=== PATIENT | female | born 1970 | race Caucasian/White ===

== ENCOUNTER 2020-11-16 13:54 | Outpatient (REF) | payer MEDICAID, SELFPAY | END 2020-11-16 13:55 | disposition home or self-care (01) | LOC: HO.LAB 13:54 | PROVIDERS: Visit Provider Internal Medicine | DX: Z20.822 Contact with and (suspected) exposure to COVID-19 (principal) | CPT/HCPCS: 36415; C9803; U0003; U0005 ==

== ENCOUNTER 2021-07-24 08:11 | Outpatient (REF) | payer MEDICAID, SELFPAY | END 2021-07-24 08:12 | disposition home or self-care (01) | LOC: HO.LAB 08:11 | PROVIDERS: Visit Provider Internal Medicine | DX: Z20.822 Contact with and (suspected) exposure to COVID-19 (principal) | CPT/HCPCS: C9803; U0003; U0005 ==

== ENCOUNTER 2021-08-04 13:05 | Outpatient (REF) | payer MEDICAID, SELFPAY | END 2021-08-04 13:06 | disposition home or self-care (01) | LOC: HO.LAB 13:05 | PROVIDERS: Visit Provider Internal Medicine | DX: Z20.822 Contact with and (suspected) exposure to COVID-19 (principal) | CPT/HCPCS: C9803; U0003; U0005 ==

== ENCOUNTER 2021-08-21 08:28 | Outpatient (REF) | payer MEDICAID, SELFPAY ==
[2021-08-21 09:55] LABS: COVID-19 Test Negative (Negative)
== END 2021-08-21 08:29 | disposition home or self-care (01) ==
LOC: HO.LAB 08:28
PROVIDERS: Visit Provider Internal Medicine
DX: Z20.822 Contact with and (suspected) exposure to COVID-19 (principal)
CPT/HCPCS: 36415; 87635; C9803

== ENCOUNTER 2021-10-03 14:39 | Outpatient (REF) | payer MEDICAID, SELFPAY ==
--- NOTE | ~2021-10-03 | MM_ITS ---
EXAMINATION: MM SCREENING DIGITAL BREAST TOMOSYNTHESIS, BILATERAL CLINICAL INFORMATION: Screening. Asymptomatic. The lifetime risk of breast cancer based on the Tyrer-Cuzick Model is 7%. COMPARISON: Mammography: 04/07/2019 (baseline) TECHNIQUE: Digital breast tomosynthesis is performed in both the craniocaudal and mediolateral oblique views along with computer-aided detection (CAD). Synthesized 2D images are generated from the tomosynthesis. FINDINGS: The breasts are heterogeneously dense, which may obscure small masses (ACR BI-RADS breast composition Category c). Breast tissue composition borders on average fibroglandular. There is asymmetric density anterior medial left breast approximately 1 cm size on CC view without MLO correlate. This may represent summation artifact or incompletely compressed glandular tissue. Patient will be recalled for additional imaging. The remainder of the breasts show no interval mass or architectural abnormality or abnormal calcifications. The axilla are unremarkable. There is mild bilateral nipple retraction on CC views. MM/MM tomosynthesis screening BI IMPRESSION: 1. Left: Asymmetric density anterior medial breast on CC view, possibly summation artifact or incompletely compressed glandular tissue. 2. Right: No mammographic evidence of malignancy. ASSESSMENT: BI-RADS 0: Incomplete - Need Additional Imaging Evaluation RECOMMENDATION: 1. Additional views of the left breast (spot CC, rolled CC x2). 2. Targeted ultrasound if warranted after review of the additional views. 3. Radiology department staff will contact the patient for additional imaging. This patient's information was entered into a reminder system with a target due date for their next mammogram.
== END 2021-10-03 14:40 | disposition home or self-care (01) ==
LOC: HO.MAMMO 14:39
PROVIDERS: Visit Provider Internal Medicine
DX: Z12.31 Encounter for screening mammogram for malignant neoplasm of breast (principal)
CPT/HCPCS: 77063; 77067

== ENCOUNTER 2021-10-17 14:17 | Outpatient (REF) | payer MEDICAID, SELFPAY ==
--- NOTE | ~2021-10-17 | MM_ITS ---
EXAMINATION: MM DIAGNOSTIC DIGITAL BREAST TOMOSYNTHESIS, LEFT US DIAGNOSTIC ULTRASOUND BREAST, LEFT CLINICAL INFORMATION: Recall from screening for subtle asymmetric density anterior medial breast on CC view. TC score 7%. COMPARISON: Mammography: 10/03/2021, 04/07/2019 (baseline). TECHNIQUE: Digital breast tomosynthesis is performed. 2D images are generated from the tomosynthesis. The following views are obtained: Rolled CC x2, spot CC Ultrasound left breast is targeted to the lower inner quadrant. Grayscale imaging and color Doppler are performed without and with harmonics. FINDINGS: The breasts are heterogeneously dense, which may obscure small masses (ACR BI-RADS breast composition Category c). The additional views show subtle small nodularity periareolar medial left breast in area of recall. There is no architectural abnormality or focal duct ectasia. Ultrasound demonstrates 2 incidental cysts in the 7:00-8:00 position within 3 cm of nipple, the larger measuring 0.9 x 0.6 cm with circumscribed margins and increased through-transmission of sound. No associated color flow. The smaller cyst is 0.6 x 0.5 cm with fine avascular internal septation. There is increased through-transmission of sound. There is no solid mass or architectural abnormality. Results are discussed with the patient at time of visit. MM/MM tomosynthesis added views L IMPRESSION: 2 incidental cysts periareolar lower inner left breast, larger 0.9 cm. ASSESSMENT: BI-RADS 2: Benign RECOMMENDATION: Routine annual mammography screening. This patient's information was entered into a reminder system with a target due date for their next mammogram.
== END 2021-10-17 14:18 | disposition home or self-care (01) ==
LOC: HO.MAMMO 14:17
PROVIDERS: PCP Internal Medicine; Visit Provider Internal Medicine
DX: N64.89 Other specified disorders of breast (principal); N60.02 Solitary cyst of left breast
CPT/HCPCS: 76642; 77061; 77065

== ENCOUNTER → 2021-11-08 08:17 | Outpatient (BNVA) | payer MEDICAID, SELFPAY | PROVIDERS: PCP Internal Medicine; Visit Provider Obstetrics & Gynecology | DX: Z13.89 Encounter for screening for other disorder (principal) ==

== ENCOUNTER → 2021-12-25 11:22 | Outpatient (BNVA) | payer MEDICAID, SELFPAY | PROVIDERS: PCP Internal Medicine | DX: N39.3 Stress incontinence (female) (male) (principal) | CPT/HCPCS: 51798; 99202 ==

== ENCOUNTER 2022-01-08 14:23 | Outpatient (REF) | payer MEDICAID, SELFPAY ==
--- NOTE | ~2022-01-08 | US_ITS ---
EXAMINATION: US PELVIS CLINICAL INFORMATION: Hypertrophy of the uterus COMPARISON: 03/28/2020 TECHNIQUE: Ultrasound of the pelvis is performed using both transabdominal and transvaginal transducers along with Doppler. Transvaginal imaging is performed due to inadequate visualization transabdominally. FINDINGS: Uterus: The uterus is anteverted and measures 12.9 x 8.4 x 8.6 cm. Multiple fibroids are redemonstrated, largest within the right fundus measures up to 8.3 cm, previously 9.6 cm. There are 3 additional fibroids measure around 3 cm image similar to prior. The double wall endometrial thickness is 5 mm. The uterus is smooth in contour and has normal myometrial echogenicity. Adnexa: There is no pelvic ascites or fluid collection. Right ovary not seen. Left ovary measures 3.1 x 1.8 x 1.5 cm, and is normal in appearance. US/US pelvic and transvaginal IMPRESSION: Leiomyomatous uterus as described.
== END 2022-01-08 14:24 | disposition home or self-care (01) ==
LOC: HO.US 14:23
PROVIDERS: Visit Provider Obstetrics & Gynecology
DX: N85.2 Hypertrophy of uterus (principal)
CPT/HCPCS: 76830; 76856

== ENCOUNTER → 2022-01-23 11:44 | Outpatient (BNVA) | payer MEDICAID, SELFPAY | PROVIDERS: PCP Internal Medicine; Visit Provider Obstetrics & Gynecology | DX: Z13.89 Encounter for screening for other disorder (principal) ==

== ENCOUNTER → 2022-09-21 14:59 | Outpatient (BNVA) | payer MEDICAID, SELFPAY | PROVIDERS: PCP Internal Medicine; Visit Provider Nurse Practitioner Family | DX: Z13.89 Encounter for screening for other disorder (principal) ==

== ENCOUNTER → 2022-11-12 11:07 | Outpatient (BNVA) | payer MEDICAID, SELFPAY | PROVIDERS: PCP Internal Medicine; Visit Provider Nurse Practitioner Family | DX: N39.3 Stress incontinence (female) (male) (principal) | CPT/HCPCS: 51798; 99212 ==

== ENCOUNTER → 2022-12-11 14:24 | Outpatient (BNVA) | payer MEDICAID, SELFPAY | PROVIDERS: PCP Internal Medicine; Visit Provider Nurse Practitioner Family | DX: R32 Unspecified urinary incontinence (principal) | CPT/HCPCS: 51798 ==

== ENCOUNTER 2022-12-18 16:22 | Outpatient (REF) | payer MEDICAID, SELFPAY ==
--- NOTE | ~2022-12-18 | US_ITS ---
EXAMINATION: US RETROPERITONEAL LIMITED (RENAL ONLY) CLINICAL INFORMATION: Stress incontinence (female). COMPARISON: None available. TECHNIQUE: Real-time imaging of the kidneys. FINDINGS: RIGHT KIDNEY: 9.1 x 3.6 x 4.4 cm (SAG x AP x TRV). The kidney is normal in size, contour, and echogenicity. Renal cortical thickness is normal. No calculi or focal parenchymal lesions. No hydronephrosis. LEFT KIDNEY: 8.7 x 4.0 x 5.1 cm (SAG x AP x TRV). The kidney is normal in size, contour, and echogenicity. Renal cortical thickness is normal. No calculi or focal parenchymal lesions. No hydronephrosis. US/US retroperitoneal limited IMPRESSION: Normal renal ultrasound.
== END 2022-12-18 16:23 | disposition home or self-care (01) ==
LOC: HO.US 16:22
PROVIDERS: Visit Provider Nurse Practitioner Family
DX: N39.3 Stress incontinence (female) (male) (principal)
CPT/HCPCS: 76775

== ENCOUNTER 2022-12-20 14:23 | Outpatient (REF) | payer MEDICAID, SELFPAY ==
[2022-12-21 09:11] LABS: CT PCR NOT DETECTED (Not Detect.); NG PCR NOT DETECTED (Not Detect.)
[2022-12-21 11:06] LABS: BV Int Neg Control Negative (Negative); BV Int Pos Control Positive (Positive)
[2022-12-27 07:24] LABS: HPV mRNA E6/E7 rflx Not Detected (Not Detected)
== END 2022-12-20 14:24 | disposition home or self-care (01) ==
LOC: HO.LNP 14:23
PROVIDERS: PCP Internal Medicine; Visit Provider Advanced Practice Midwife
DX: Z01.411 Encounter for gynecological examination (general) (routine) with abnormal findings (principal); Z11.51 Encounter for screening for human papillomavirus (HPV); N39.3 Stress incontinence (female) (male); R23.9 Unspecified skin changes; N89.8 Other specified noninflammatory disorders of vagina
CPT/HCPCS: 0353U; 87480; 87510; 87624; 87660; 88142

== ENCOUNTER 2023-01-01 14:40 | Outpatient (REF) | payer MEDICAID, SELFPAY ==
--- NOTE | ~2023-01-01 | US_ITS ---
EXAMINATION: US PELVIS LIMITED (BLADDER) CLINICAL INFORMATION: Stress incontinence. COMPARISON: Ultrasound retroperitoneal limited (renal only) 12/18/2022. TECHNIQUE: Real-time imaging of the bladder. FINDINGS: BLADDER: Well distended and normal. Bilateral ureteral jets are demonstrated. Prevoid bladder volume is 218.8 mL. Postvoid bladder volume is 1.1 mL. Enlarged fibroid uterus. US/US bladder IMPRESSION: Normal bladder. Enlarged fibroid uterus.
== END 2023-01-01 14:41 | disposition home or self-care (01) ==
LOC: HO.US 14:40
PROVIDERS: PCP Internal Medicine; Visit Provider Nurse Practitioner Family
DX: N39.3 Stress incontinence (female) (male) (principal)
CPT/HCPCS: 76857

== ENCOUNTER 2023-01-08 14:00 | Outpatient (RCR) | payer MEDICAID, SELFPAY ==
--- NOTE | 2023-01-01 15:19 | MHC.PT.EP ---
[facility] [place] Office [place] Office [place] Office [address] Lilia Yates [address] [phone] F: [phone] F: [phone] F: [phone] F: [phone] Physical Therapy Plan of Care Date of Evaluation: Date of Surgery: Diagnosis: EDVIN Assessment: 52 y/o female referred to Pelvic floor PT with EDVIN. S/s consistent with EDVIN with coughing, sneezing, and laughing as well as some urgency UI with running water. She urinates every 30-45minutes and needs to change pantyliners 2-3x/day. Held pelvic floor assessment today as pt has full bladder in preparation for ultrasound scheduled. Examination shows decreased L hip AROM, decreased hip/core strength, noted bulging of abdomen with core bracing, poor functional load transfer and mild lateral rib expansion with breathing. Recommend PT 1x/week for 8 weeks to address impairments, implement HEP, and optimize functional mobility. Educated pt on pelvic floor anatomy with model, pelvic floor assessment, and the knack with coughing/ sneezing. Frequency and Duration: The patient will be seen 1x/week for 8 weeks Short Term Goals: 4 weeks 1. Pt to be able to correctly activate her PFM to allow improved support to bowel and bladder. 2. Pt to be able to demonstrate a pre contraction before a cough 3. pt to be able to log roll correctly to reduce pressure on the pelvic floor. Intermediate Goals: 8 weeks 1. Pt to be able to show improved PFM contraction during functional movements such as a bridge or squat to help prevent or limit POP. 2. Pt to reduce # of episodes of EDVIN during the day by 50% to help improve quality of life and reduce pad usage. 3. Pt to be independent with her final HEP for PFM in order to help maintain gains made in therapy. Treatment Plan: Modalities to reduce pain, spasms and effusion. Manual therapy to restore motion and function. Therapeutic exercise to improve strength and flexibility. Neuromuscular re-education for posture and balance. Therapeutic activities to return to functional activities of daily living. Electronically signed by: Please sign and return to therapist. Thank you for your referral.
--- NOTE | 2023-02-05 14:26 | MHC.PT.DC ---
[facility] [place] Office [place] Office [place] Office [address] Lilia Yates [address] [phone] F: [phone] F: [phone] F: [phone] F: [phone] Physical Therapy Discharge Report Diagnosis: EDVIN Date of Surgery: Date of Evaluation: 01/01/23 Date of Discharge: 02/05/23 Treatments to Date: 2 Cancellations to Date: 1 No Shows to Date: 2 Discharge Status: Visit Non-compliance Discharge Summary: Patient d/c secondary to noncompliance with scheduling policy. At time of last visit, pt provided consent for pelvic floor assessment. Findings externally showed noted whitish pink tissues with 4 small vertical fissures about 1 long each (2 on each side between labia major/minora, labia minoria appears partially absorbed, clitoral umaña mobility WNL, increased tissue density over perineum. Good pelvic floor voluntary contraction and relaxation, no knack with coughing and noted anterior descent of tissues to introitus. Internally, no TTP, PERF 3+/7/3//7, and noted anterior descent of tissues to introital opening in hooklying. Educated pt on prolapse management with elevating hips, hula-hooping, double voiding, and pressure management. Also practiced fake clearing of throat for learning knack. We discussed skin care and f/u with doctor re tissue coloration changes at vulva and 4 small fissures - she has a f/u and biopsy for these changes next week per pt. Electronically signed by: Rosanna Duncan PT Please sign and return to therapist. Thank you for your referral.
== END 2023-02-05 14:26 | disposition home or self-care (01) ==
LOC: HO.PT 14:00
PROVIDERS: PCP Internal Medicine; Visit Provider Nurse Practitioner Family
DX: N93.9 Abnormal uterine and vaginal bleeding, unspecified (principal)
CPT/HCPCS: 97112; 97140; 97162

== ENCOUNTER → 2023-02-25 12:43 | Outpatient (BNVA) | payer MEDICAID, SELFPAY | PROVIDERS: PCP Internal Medicine; Visit Provider Obstetrics & Gynecology | DX: N90.4 Leukoplakia of vulva (principal) | CPT/HCPCS: 99212 ==

== ENCOUNTER → 2023-05-28 13:51 | Outpatient (BNVA) | payer MEDICAID, SELFPAY | PROVIDERS: PCP Internal Medicine; Visit Provider Obstetrics & Gynecology ==

== ENCOUNTER 2023-06-04 14:36 | Outpatient (REF) | payer MEDICAID, SELFPAY | END 2023-06-04 14:37 | disposition home or self-care (01) | LOC: HO.LNP 14:36 | PROVIDERS: PCP Internal Medicine; Visit Provider Obstetrics & Gynecology | DX: N90.4 Leukoplakia of vulva (principal) | CPT/HCPCS: 56605; 88305; 88312 ==

== ENCOUNTER 2023-06-04 14:36 | Outpatient (AMB) | payer MEDICAID, SELFPAY ==
--- NOTE | 2023-06-04 14:48 | MHC.OFFVIS ---
Intake Vital Signs 06/04/23 14:49 Height 4 ft 11 in Weight 127 lb 13.89 oz BMI 25.8 BP 118/74 Intake Visit Reasons: vulva BX Maintenance Helper Required: No Information Interpreted: non-clinical & clinical Mangle Tender Cloth: Mangle Tender Cloth Present (Kirsten Patrick CHERRY) Accompanied by: Self / Same As Patient Allergies No Known Allergies Allergy (Verified 06/04/23 14:50) Post menopausal: Yes PFSH Medical History Anal lesion Asthma Rectal bleeding Stress incontinence (female) (male) Surgical History Hx of tubal ligation Family History Maternal Aunt Breast CA Sister Cervical cancer Social History Household Members: None Patient Tobacco Use Status: Never used Tobacco Female Reproductive History Menstrual Age of Menarche: 10 Physical Exam Vital Signs: Last Vital Signs BP 118/74 06/04/23 14:49 BMI result Body Mass Index 25.8 Office 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 Since bilateral leukoplakia as look similar, decision was to proceed with left vulvar leukoplakia only. 3 cc of lidocaine was used for anesthesia at the Left vulvar leukoplakia/ulcer area ; using punch biopsy and pickup the Left vulvar leukoplakia/ulcer was biopsied, Vicryl was used to approximate the edges. Pressure was used for hemostasis. The patient tolerated the procedure well. Discharge Instructions: The patient was instructed to schedule an appointment in 2 weeks for follow-up and to call if temp>100.4, area of the biopsy redness or pain, nausea/vomiting. This note was generated with a voice recognition program. Some errors may have been overlooked during the review of this note. Sometimes these errors may affect the content or meaning of a given sentence. 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
[2023-06-04 14:49] VITALS: BP 118/74; BMI 25.8
== END 2023-06-04 15:40 | disposition home or self-care (01) ==
PROVIDERS: PCP Internal Medicine; Visit Provider Obstetrics & Gynecology
DX: N90.4 Leukoplakia of vulva (principal)
CPT/HCPCS: 56605

== ENCOUNTER 2023-07-23 13:43 | Outpatient (AMB) | payer MEDICAID, SELFPAY ==
[2023-07-23 13:44] VITALS: BP 110/70; BMI 25.6
--- NOTE | 2023-07-23 13:44 | MHC.OFFVIS ---
Intake Vital Signs 07/23/23 13:44 Height 4 ft 11 in Weight 127 lb BMI 25.6 BP 110/70 Intake Visit Reasons: Biopsy Results Allergies No Known Allergies Allergy (Verified 07/23/23 13:45) HPI HPI Comments History of Present Illness Details Presenting for follow-up post vulvar biopsy, doing well with no complaints. The pathology showed the following: Vulva, left, lesion, biopsy: Benign skin with acanthosis, hyperkeratosis, hypergranulosis, minimal dermal lymphocytes, and few scattered melanophages (see comment). Comment: These minimal changes suggest chronic irritation and may be postinflammatory (? resolving allergic/irritant contact dermatitis, id reaction etc.) and clinical correlation is necessary [facility] Medical History Stress incontinence (female) (male) Anal lesion Rectal bleeding Asthma Surgical History Hx of tubal ligation Family History Maternal Aunt Breast CA Sister Cervical cancer Social History Household Members: None Patient Tobacco Use Status: Never used Tobacco Female Reproductive History Menstrual Age of Menarche: 10 Review of Systems Const All systems reviewed & are unremarkable except as noted in HPI and below Reports as per HPI and Reports no additional complaints GI Reports no additional complaints Reports no additional complaints Physical Exam Vital Signs: BMI result Body Mass Index 25.6 Assessment & Plan Assessment & Plan (1) 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 Instructions given the patient to call in case symptoms persist, for identification of perineal nonhealing ulcers or hard areas. All questions answered, the patient verbalized understanding Coding Level of Care Code Est Pt Level 3 (20287) Diagnoses Vulvar leukoplakia N90.4
== END 2023-07-23 15:17 | disposition home or self-care (01) ==
LOC: HO.HWS 13:43
PROVIDERS: PCP Internal Medicine; Visit Provider Obstetrics & Gynecology
DX: N90.4 Leukoplakia of vulva (principal)
CPT/HCPCS: 99213

== ENCOUNTER → 2023-07-23 13:43 | Outpatient (BNVA) | payer MEDICAID, SELFPAY | PROVIDERS: PCP Internal Medicine; Visit Provider Obstetrics & Gynecology | DX: N90.4 Leukoplakia of vulva (principal) | CPT/HCPCS: 99212 ==

== ENCOUNTER 2024-09-15 08:32 | Outpatient (REF) | payer MEDICAID, SELFPAY | END 2024-09-15 08:33 | disposition home or self-care (01) | LOC: HO.MAMMO 08:32 | PROVIDERS: PCP Registered Nurse; Visit Provider Registered Nurse | DX: Z12.31 Encounter for screening mammogram for malignant neoplasm of breast (principal) | CPT/HCPCS: 77063; 77067 ==

== ENCOUNTER → 2024-09-15 08:45 | Outpatient (BNV) | payer MEDICAID, SELFPAY | PROVIDERS: PCP Registered Nurse; Visit Provider Internal Medicine | DX: Z12.31 Encounter for screening mammogram for malignant neoplasm of breast (principal) | CPT/HCPCS: 77063; 77067 ==

== ENCOUNTER 2025-03-10 15:37 | Outpatient (REF) | payer MEDICAID, SELFPAY ==
--- NOTE | ~2025-03-10 | XR_ITS ---
XR KNEE FAUSTINO 3V HISTORY: Chronic bilateral knee pain. Suspect effusion right knee. COMPARISON: No prior. TECHNIQUE: AP view bilateral knees standing, bilateral tunnel view, bilateral patellofemoral view, and lateral view each knee. FINDINGS: RIGHT KNEE: No fracture, dislocation, or suspicious bone lesion. Normal alignment. Mild medial and minimal patellofemoral compartment joint space narrowing with minimal spurring. Normal patellar alignment. No abnormal patellar tilt. No evidence of significant joint effusion. Soft tissues appear normal. LEFT KNEE: No fracture, dislocation, or suspicious bone lesion. Normal alignment. Mild medial and minimal patellofemoral compartment joint space narrowing with minimal spurring. Normal patellar alignment. No abnormal patellar tilt. No evidence of significant joint effusion. Soft tissues appear normal. XR/XR Knee Faustino 4V IMPRESSION: 1. Bilateral knees demonstrating mild medial and minimal patellofemoral compartment osteoarthrosis. No acute bony abnormalities. No evidence of joint effusion in either knee. Electronically signed by: Deion Wilson MD 03/10/2025 04:30 PM EDT
--- OUTSIDE RECORDS SUMMARY | 2025-03-10 15:43 | XMS_ITS | Data Portability ---
Author Organization [facility] [address] Address [address] [place] [address] Care Team Providers Care Senior Software Test Engineer Name Role Phone [facility] Primary Care Provider Assessment No assessment recorded. Plan of Treatment Reminders Order Date Submit Date Provider Last Modified By Organization Details Last Modified Time Details Appointments None record ed. Lab None record ed. Referral None record ed. Procedures None record ed. Surgeries None record ed. Imaging None record ed. Medication Orders None record ed. Patient TargetsNo targets recorded. Patient InstructionsNo instructions recorded. Reason for Referral None Reported. Problems No Known Problems Medical Equipment None Reported. Allergies No known drug allergies Medications Not known to be on any medication Vitals Date Recorded Body height Body mass index (BMI) Body weight Oxygen saturation Oxygen saturation in Arterial blood by Pulse oximetry Heart rate Respiratory rate Body temperature Systolic And Diastolic Provider Name and Address Organization Details Last Updated DateTime 149.86 cm 27.3 kg/m2 07191.9 7 g 96 % 96 % 65 /min 16 /min 97.8 [degF] 125/79 mm[Hg] KYE Russo [facility] 11:52:33 Social History Question Answer Notes LastModified by [employer] Details LastModified Time Tobacco Smoking Status Never Smoker [facility] 02/27/2023 11:50:37 Have You Recently Traveled Abroad? No Information not available 02/27/2023 Sex: Unknown Functional Status Question Answer Note LastModified by [employer] Details LastModified Time Do you use any illicit or recreational drugs? No Information not available 02/27/2023 Do you or have you ever used any other forms of tobacco or nicotine? No Information not available 02/27/2023 What is your level of alcohol consumption? None Information not available 02/27/2023 Are you currently employed? Yes Information not available 02/27/2023 Mental Status None recorded. Family History Relationship Description Onset Age of this Age Resolved Age Notes LastModified by Organization Details LastModified Time Father No current problems or disability Not available 02/27 11:50:21 Mother No current problems or disability Not available 02/27 11:50:21 Medical History No medical history recorded. Gynecological HistoryNo gynecological history recorded. Obstetrics History GPAL:G 0 P 0 0 0 0 Immunizations Vaccine Type Date Status Note Provider Nam e and Address Organization Details Recorded Time Tdap 11/28/2021 completed [facility] 02/27/2023 11:50:08 Past Encounters Encounter ID Performer Location Encounter Start Date Encounter Closed Date Diagnosis/Indication Diagnosis SNOMED-CT Code Diagnosis ICD10 Code Diagnosis Note [id number] [address] [address] [address] [place] [address] 08/31/2020 10:57:07 08/31/2020 12:33:43 [id number] Kiya Braun MD [address] [address] [place] [address] 02/27/2023 11:22:53 02/27/2023 13:29:46 Left without being seen [id number] 9102 Z53.21 Health Concerns Section Related Observation LastModified by Organization Detai ls LastModified Time None Recorded Concern Status LastModified by Organization Details LastModified Time None Recorded Advance Directives Directive None Recorded Payers Insurance Date Sequence Insurance Name Policy Number Policy Hoang Covered Member ID Hoang Member ID Guarantor Name 02/27/2023 1 [place] [facility] Paris Rajput [id number] Paris Rajput OBGyn Episode No OBEpisode recorded.
--- OUTSIDE RECORDS SUMMARY | 2025-03-10 15:43 | XMS_ITS | Encounter Summary ---
Author Organization [facility] Address [address] [address] Care Team Providers Care Client Resolution Specialist Name Role Phone Rangel Rodriguez PRODUCTION MACHINIST Primary Care Provider Marika Whalen Primary Care Provider [phone] Encounter Details Date Type Department Care Team (Late st Contact Info) Description 08/15/2022 Abstract [facility] MEDICINE [address] [place] [address] Rangel Rodriguez FNP Social History Tobacco Use Types Packs/Day Years Used Date Smoking Tobacco: Never Assessed Comments Unknown Sex and Gender Information Value Date Recorded Sex Assigned at Female 06/25/2022 10:18 AM EDT Legal Sex Female 10:18 AM EDT Gender Identity Female 06/25/2022 10:18 AM EDT Sexual Orientation Choose not to disclose 2021 10:18 AM EDT documented as of this encounter Plan of Treatment Upcoming Encounters Date Type Department Care Team (Late st Contact Info) Description 04/30/2025 1:00 PM EDT Office Visit [facility] MEDICINE [address] [place] [address] Marika Trujillo [facility] [address] [place] [address] documented as of this encounter Visit Diagnoses Not on filedocumented in this encounter Care Teams Client Resolution Specialist Relationship Specialty Start Date End Date Rangel Rodriguez FNP PCP - General 07/16/22 10/22/22 Marika Trujillo FNP [address] [place] [address] PCP - General Family Medicine 10/23/22 documented as of this encounter
== END 2025-03-10 15:38 | disposition home or self-care (01) ==
LOC: HO.HHCL 15:37
PROVIDERS: PCP Registered Nurse; Visit Provider Registered Nurse
DX: G89.29 Other chronic pain (principal); M25.561 Pain in right knee; M25.562 Pain in left knee
CPT/HCPCS: 73564

== ENCOUNTER → 2025-03-10 15:41 | Outpatient (BNV) | payer MEDICAID, SELFPAY | PROVIDERS: PCP Registered Nurse; Visit Provider Radiology Diagnostic Radiology | DX: M25.561 Pain in right knee (principal); M25.562 Pain in left knee | CPT/HCPCS: 73564 ==

== ENCOUNTER 2025-04-27 13:00 | Outpatient (RCR) | payer MEDICAID, SELFPAY ==
--- NOTE | 2025-04-15 11:55 | MHC.PT.EP ---
[facility] [place] Office [place] Office [place] Office [address] Lilia Yates [address] [phone] F: [phone] F: [phone] F: [phone] F: [phone] Physical Therapy Plan of Care Date of Evaluation: 04/15/25 Date of Surgery: N/A Diagnosis: chronic pain of both knees (RL) Assessment: pt is a 54 y/o female presenting to physical therapy w/ referring diagnosis of chronic pain of both knees. Impairments include pain, decreased range of motion, decreased strength, impaired functional mobility, impaired postural awareness, and altered ambulation mechanics. pt is a good candidate for skilled PT due to age, potential remediation of impairments, typical disease/condition progression and prognosis, comorbidities, and motivation. pt would benefit from skilled PT intervention to provide a tailored strengthening and stretching exercise program, functional training, gait training, postural re-training, neuromuscular re-education, modalities as needed for pain, equipment safety demonstration. Frequency and Duration: The patient will be seen 2x/wk for 4 wks Short Term Goals: pt will be I w/ HEP to promote self-management of condition. pt will improve R knee extension to 0* to promote improved heel strike w/ gait. Development Architect Goals: pt will report a statistically significant improvement in self-reported outcome measure, LEFI, to promote return to PLOF. pt will improve R knee quad strength to 5/5 to promote reciprocal stair navigation w/ railing. Treatment Plan: Modalities to reduce pain, spasms and effusion. Manual therapy to restore motion and function. Therapeutic exercise to improve strength and flexibility. Neuromuscular re-education for posture and balance. Therapeutic activities to return to functional activities of daily living. Electronically signed by: Cherelle Serrano PT, DPT Please sign and return to therapist. Thank you for your referral.
--- NOTE | 2025-05-05 15:33 | MHC.PT.DC ---
[facility] [place] Office [place] Office [place] Office [address] Lilia Yates 140 [facility] [phone] F: [phone] F: [phone] F: [phone] F: [phone] Physical Therapy Discharge Report Diagnosis: chronic pain of both knees (RL) Date of Surgery: N/A Date of Evaluation: 04/15/25 Date of Discharge: 05/05/25 Treatments to Date: 4 Cancellations to Date: 0 No Shows to Date: 3 Discharge Status: Visit Non-compliance Discharge Summary: The patient has no showed three consecutive appointments. Per [facility] attendance policy she is to be discharged for non-compliance. Electronically signed by: Cherelle Serrano PT, DPT Please sign and return to therapist. Thank you for your referral.
== END 2025-05-05 15:33 | disposition home or self-care (01) ==
LOC: HO.PT 13:00
PROVIDERS: PCP Registered Nurse; Visit Provider Registered Nurse
DX: M25.561 Pain in right knee (principal); M25.562 Pain in left knee; G89.29 Other chronic pain
CPT/HCPCS: 97161

== ENCOUNTER 2025-04-27 14:35 | Outpatient (AMB) | payer MEDICAID, SELFPAY ==
--- NOTE | 2025-04-27 14:37 | MHC.OFFVIS ---
Vital Signs 04/27/25 14:43 Height 4 ft 11 in Weight 135 lb BMI 27.3 Intake Visit Reasons: Right knee pain and giving way Intake Note: Paris is a 54 year old female who presents with complaints of progressively worsening right knee pain and giving way. She also has intermittent discomfort in her left knee. She states that her left knee pain is tolerable to her at this point. The patient describes her right knee pain as sharp in nature. Most of the pain is along the anterior and medial aspect of her right knee. Her symptoms have gotten worse over the last 9 months. She states that her right knee will give out several times per day. She has failed the last 6 weeks of conservative treatment which has included Tylenol, ibuprofen and physical therapy exercises. She states that her right knee pain and mechanical symptoms are now interfering with her activities of daily living and her ability to sleep well. 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 Female Reproductive History Menstrual Age of Menarche: 10 Physical Exam Vital Signs: BMI result Body Mass Index 27.3 Const Other: Well-nourished well-developed very friendly female awake alert and oriented x3 in no acute distress Extrem Other: Right knee examination shows a minimal effusion, minimal crepitus with range of motion, tenderness along her medial joint line, positive Gisel's test, no instability Results Reviewed Results Reviewed: Standing full weight-bearing x-rays of the patient's right knee show mild diffuse joint space narrowing, no acute bony abnormalities Assessment & Plan Assessment & Plan (1) Tear of medial meniscus of right knee: Code(s): S83.241A - Other tear of medial meniscus, current injury, right knee, initial encounter Category: Medical Plan Ms. Rajput presents with progressively worsening right knee pain and mechanical symptoms most likely due to a medial meniscus tear. Thus, I will send the patient for an MRI of her right knee for further evaluation. I will see her back once the MRI is completed to discuss the findings and treatment options. Feel free to call me at any time should questions regarding her orthopedic management arise. Thank you very much for asking me to see this very friendly patient. I spent 20 minutes in reviewing the patient's records and imaging studies, seeing the patient and documenting in the medical record. Orders: Orders MR knee RT wo con 04/28/25 S83.241A - Other tear of medial meniscus, current injury, right knee, initial encounter Coding Level of Care Code New Pt Level 3 (74320) Complex EM visit Add On G2211 Diagnoses Tear of medial meniscus of right knee S83.241A
[2025-04-27 14:43] VITALS: BMI 27.3
--- OUTSIDE RECORDS SUMMARY | 2025-04-27 15:47 | XMS_ITS | Encounter Summary ---
Author Organization [employer] Address [address] [facility] [address] [place] [address] Care Team Providers Care Fire Control Technician G Name Role Phone Marika Trujillo [employer] ENGINEER Primary Care Provider [phone] Encounter Details Date Type Department Care Team (Late st Contact Info) Description 03/25/2025 Orders Only [facility] [address] [place], [place] [id number] Provider, MD Priya Social History Tobacco Use Types Packs/Day Years Used Date Smoking Tobacco: Never Smokeless Tobacco: Never Alcohol Use Standard Drinks/Week Comments Never 0 (1 standard drink = 0.6 oz pur e alcohol) Depression Answer Date Recorded Patient Health Questionnaire-9 Score 17 03/12/2025 Patient Health Questionnaire-9 Score 17 03/12/2025 Last PHQ-9: Questionnaire Data Not on file 0 03/12/2025 Housing Stability Answer Date Recorded What is your housing situation today? I have masterxavi joyner 07/15/[address] you li ve. Do you have problems with any of the following? None of the above 07/15/2024 Food Insecurity Answer Date Recorded Within the past 12 months, y ou worried that your food would run out before you got money to buy more: Never True 07/15/2024 Within the past 12 months,th e food you bought just didn't last and you didn't have enough money to get more: Never True Transportation Answer Date Recorded In the past 12 months, has l ack of transportation kept you from medical appts, meetings, work or from getting things needed for daily living? No 07/15/2024 Utilities Answer Date Recorded In the past 12 months, has t he electric, gas, oil or water company threatened to shut off services in your home? No 07/15/2024 Depression Answer Date Recorded Patient Health Questionnaire-2 Score 6 03/12/2025 Internet Access Answer Date Recorded Internet Access Q1 Yes 07/15/2024 Internet Access Q2 Not on file 07/15/2024 Comments Unknown Sex and Gender Information Value Date Recorded Sex Assigned at Female 06/25/2022 10:18 AM EDT Legal Sex Female 10:18 AM EDT Gender Identity Female 06/25/2022 10:18 AM EDT Sexual Orientation Choose not to disclose 2021 10:18 AM EDT documented as of this encounter Plan of Treatment Not on file documented as of this encounter Procedures Procedure Name Priority Date/Time Associated Diagnosis Comments HM PAP/HPV Routine 12/20/2022 1:49 PM EDT documented in this encounter Results * HM PAP/HPV (12/20/2022 1:49 PM EDT) Historical Provider HEALTH MAINTENANCE Final Result documented in this encounter Visit Diagnoses Not on filedocumented in this encounter Additional Health Concerns Assessment Noted Time PHQ-9 Depression Total Score: 17 025 2:53 PM EDT documented as of this encounter Care Teams Fire Control Technician G Relationship Specialty Start Date End Date Marika Trujillo FNP [address] [place] [phone] PCP - General Family Medicine 10/23/22 documented as of this encounter
--- OUTSIDE RECORDS SUMMARY | 2025-04-27 15:47 | XMS_ITS | Encounter Summary ---
Author Organization [employer] Address [address] [address] Care Team Providers Care Personal Lines Account Manager Name Role Phone Rangel Rodriguez Primary Care Provider Tayler diana [place] JT Primary Care Provider [phone] Encounter Details Date Type Department Care Team (Late st Contact Info) Description 08/15/2022 Abstract [facility] [address] [place] [address] Rangel Rodriguez FNP Social History Tobacco Use [...] on file documented as of this encounter Visit Diagnoses Not on filedocumented in this encounter Care Teams Personal Lines Account Manager Relationship Specialty Start Date End Date Rangel Rodriguez FNP PCP - General 07/16/22 10/22/22 [place] F[place] [address] [place] [address] PCP - General Family Medicine 10/23/22 documented as of this encounter
--- OUTSIDE RECORDS SUMMARY | 2025-04-27 15:48 | XMS_ITS | Clinical Summary ---
Author Organization [employer] Address [address] [facility] 7[address] [place] [address] Care Team Providers Care Information Systems Security Analyst Name Role Phone Marika Trujillo [facility] Primary Care Provider [phone] Allergies No known active allergies Medications * This document contains information received from the source organization and may not represent a complete record from that organization. chlorhexidine (Periogard) 0.12 % solution Place 15 mL into mouth between cheek and gum every 12 (twelve) hours. 1 Active Diclofenac Sodium (Voltaren) 1 % gel Apply 2 g topically every 6 (six) hours. 1 Active lidocaine (Lidoderm) 5 % patch Place 1 patch on the skin at bed time. 1 Active ketotifen (Zaditor) 0.025 % ophthalmic solutionIndication s:Allergic conjunctivitis of both eyes Administer 1 drop into both eyes 2 times daily. 15 mL 3 Active diphenhydrAMINE (BENADryl) 25 MG tabletIndications: Allergic conjunctivitis of both eyes Take 1 tablet (25 mg) by mouth every 6 (six) hours if needed for itching. 30 tablet 3 Active cetirizine (ZyrTEC) 10 MG tablet TAKE 1 TABLET BY MOUTH EVERY DAY 90 tablet 4 Active fluticasone (Flonase) 50 MCG/ACT nasal spray SPRAY 1 SPRAY INTO EACH NOSTRIL EVERY DAY 32 mL 1 4 Active triamcinolone (Kenalog) 0.1 % creamIndications:O ther eczema Apply topically if needed in the morning and at bedtime (pain and swelling). 30 g 2 4 Active mirtazapine (Remeron) 7.5 MG tabletIndications: Anxiety Take 1 tablet (7.5 mg) by mouth at bedtime. 30 tablet 1 5 Active ibuprofen 600 MG tabletIndications: Chronic pain of both knees Take 1 tablet (600 mg) by mouth every 6 (six) hours if needed for mild pain. 30 tablet 1 5 Active Active Problems Problem Noted Date Diagnosed Date VÍCTOR (generalized anxiety disorder) 03/12/2025 Assessment & Plan (03/12/2025 3:10 PM EDT): During IBH Consult Paris presenting with depressed mood, Tearful, crying spells , hopelessness, loss of interests/pleasure , sense of isolation/loneliness , isolating, change in appetite or weight reduce appetite, changes in sleep difficulty falling asleep and difficulty staying asleep , difficulty concentrating, indecisiveness and excessive worry/anxiety, difficulty controlling worry, anxiety/worry associated to restlessness and/or feeling keyed-up/On edge , easily fatigued , difficulty concentrating and/or mind going blank , irritability, muscle tension , and sleep disturbance difficulty falling asleep, Fear , and sense of dread ; for a period of 6-12 mo, for most or all symptoms in the context of , family issues, and employment concern. Pt w severe anxiety, also reported depressive sxs associated with the losing of her family pets. Family issues are also associated with increase of sxs. Pt receives positive support from his sister. Currently, PCP is managing her medication. No hx of MH services, pt willing to connect with OP therapy. Moderately severe depression 03/12/2025 Assessment & Plan (03/12/2025 3:10 PM EDT): During IBH Consult [place] presenting with depressed mood, Tearful, crying spells , hopelessness, loss of interests/pleasure , sense of isolation/loneliness , isolating, change in appetite or weight reduce appetite, changes in sleep difficulty falling asleep and difficulty staying asleep , difficulty concentrating, indecisiveness and excessive worry/anxiety, difficulty controlling worry, anxiety/worry associated to restlessness and/or feeling keyed-up/On edge , easily fatigued , difficulty concentrating and/or mind going blank , irritability, muscle tension , and sleep disturbance difficulty falling asleep, Fear , and sense of dread ; for a period of 6-12 mo, for most or all symptoms in the context of , family issues, and employment concern. Pt w severe anxiety, also reported depressive sxs associated with the losing of her family pets. Family issues are also associated with increase of sxs. Pt receives positive support from his sister. Currently, PCP is managing her medication. No hx of services, pt willing to connect with OP therapy. Allergic conjunctivitis of both eyes 02/28/2023 Assessment & Plan (02/28/2023 9:48 AM EDT): Avoid triggers Allergic dermatitis 02/28/2023 Other atopic dermatitis 08/26/2022 Assessment & Plan (08/26/2022 12:25 PM EST): -Clinical presentation consistent with atopic derm -START compound triamcinolone 0.1% cream with CeraVe, may use daily from the neck down for control and prevention -Reviewed routine education from [employer] handout including: Moisturizing skin-care routines are essential. Non-soap cleansers, such as Cetaphil, or moisturizing soaps, such as Dove, are recommended. Thick moisturizers such as petroleum jelly, Aquaphor ointment, Eucerin cream, CeraVe cream, and Cetaphil cream should be applied to damp skin after daily bathing. Attempt to minimize exposure to heat, humidity, detergents/soaps, abrasive clothing, chemicals, smoke, and stress. Fragrance-free laundry detergent may be beneficial. Keep the home from getting too dry by using a humidifier or by setting out bowls of water, especially in the bedroom. Encounters * This document contains information received from the source organization and may not represent a complete record from that organization. Date Type Department Care Team Description 03/25/2025 Orders Only [facility] [address] [place] [address] Provider, MD Priya 03/13/2025 Results Follow-Up [facility] [address] [place] [address] CressonMarika FNP XR Knee 4+ Views Bilateral 03/10/2025 2:30 PM EDT Office Visit [facility] [address] [place] [address] Marika Trujillo FNP Chronic pain of both knees (Primary Dx); Anxiety 03/10/2025 Travel 03/09/2025 Telephone [facility] [address] [place] [address] Marika Trujillo FNP CHART PREP 03/09/2025 Travel 03/02/2025 Patient Outreach [facility] [address] [place] [address] Marika Trujillo FNP Pre-visit Planning ((Unable to reach for PVP screening, LVM) to be completed in office ) from Last 3 Months Immunizations Immunization Administration Dates Next Due Tdap 11/28/2021 Family History Medical History Relation Name Comments Diabetes Mother Breast cancer Mother's Sister Cervical cancer Sister Relation Name Status Comments Mother Mother's Sister Alive Sister Social History Tobacco Use Types Packs/Day Years Used Date Smoking Tobacco: Never Smokeless Tobacco: Never Tobacco Cessation:Counseling Given: Not Answered Alcohol Use Standard Drinks/Week Comments Never 0 [...] t he electric, gas, oil or water [employer] threatened to shut off services in your [...] not to disclose 2021 10:18 AM EDT Last Filed Vital Signs Vital Sign Reading Time Taken Comments Blood Pressure 110/80 03/10/2025 2:40 PM EDT Pulse 60 03/10/2025 2:40 PM EDT Temperature 36.5 C (97.7 F) 03/10/2025 2:40 PM EDT Respiratory Rate 18 03/10/2025 2:40 PM EDT Oxygen Saturation 98% 07/29/2024 1:48 PM EST Inhaled Oxygen Concentration - - Weight 59.7 kg (131 lb 9.6 oz) 03/10/2025 2:40 P M EDT Height 150.7 cm (4' 11.32 ) 03/10/2025 2:40 PM E DT Body Mass Index 26.29 03/10/2025 2:40 PM EDT Plan of Treatment Health Maintenance Due Date Last Done Comments CT Colonography 1970 Colonoscopy 1970 Colorectal Cancer Screening 1970 FIT DNA/Cologuard 1970 FIT 1970 FOBT 1970 HIV Screening 1970 Sigmoidoscopy 1970 Hepatitis C Screening 1988 Hepatitis B Vaccines (1 of 3 - 19+ 3-dose series) 1989 Pneumococcal Vaccine: 50+ Years (1 of 1 - PCV) 2020 Zoster Vaccines (1 of 2) 2020 COVID-19 Vaccine (1 - 2023-2 5 season) 2025 Influenza Vaccine (#1) 2025 Depression Monitoring 09/12/2025 03/12/2025 , 03/12/2025 Mammogram 09/15/2025 09/15/2024, 10/17/2021, 10/03/2021 Alcohol/Substance Use Screening 03/10/2026 03/10/2025 Disability Screening 03/10/2026 03/10/2025 SDOH Screening 03/10/2026 03/10/2025 Tobacco Screening 03/11/2026 03/11/2025 Cervical Cancer Screening 12/21/2027 HPV/Cotest 12/21/2027 Pap Smear 12/21/2027 12/20/2022 DTaP/Tdap/Td Vaccines (2 - T d or Tdap) 11/29/2031 11/28/2021 RSV Patients and Patients Aged 60 years or older (1 - 1-dose 75+ series) 2045 HIB Vaccines Aged Out No longer eligi ble based on patient's age to complete this topic HPV Vaccines Aged Out No longer eligi ble based on patient's age to complete this topic Hepatitis A Vaccines Aged Out No long er eligible based on patient's age to complete this topic IPV Vaccines Aged Out No longer eligi ble based on patient's age to complete this topic Meningococcal B Vaccine Aged Out No l onger eligible based on patient's age to complete this topic Meningococcal Vaccine Aged Out No cathy lisette eligible based on patient's age to complete this topic RSV under 20 months Aged Out No longe r eligible based on patient's age to complete this topic Rotavirus Vaccines Aged Out No longer eligible based on patient's age to complete this topic Procedures Procedure Name Priority Date/Time Associated Diagnosis Comments XR KNEE 4+ VIEWS BILATERAL Routine 03/10/2025 3:03 PM EDT Chronic pain of both knees BI MAMMOGRAM SCREENING TOMOSYNTHESIS BILATERAL Routine 09/15/2024 8:45 AM EST Encounter for screening mammogram for breast cancer HM PAP/HPV Routine 12/20/2022 1:49 PM EDT from Last 3 Months or Most Recently Relevant to Health Maintenance Results * XR Knee 4+ Views Bilateral (03/10/2025 3:03 PM EDT) Anatomical Region Laterality Modality Lower Extremities, Knee Bilateral Radiogra phic Imaging 03/10/2025 3:03 PM EDT Narrative 03/10/2025 4:32 PM EDT [address] [address] XRay Report Signed Patient: Paris Rajput MR#: [id number] : 1970 Acct:[id number] Age/Sex: 54 / F ADM Date: 03/10/25 Loc: HO[facility] Attending Dr: Marika Trujillo FINANCIAL REPORT SERVICE SALES AGENT Ordering Physician: Marika Trujillo Date of Service: 03/10/25 Procedure(s): XR Knee Graeme 4V Accession Number(s): [id number] cc: Marika Trujillo [facility] XR KNEE GRAEME 3V HISTORY: Chronic bilateral knee pain. Suspect effusion right knee. COMPARISON: No prior. TECHNIQUE: AP view bilateral knees standing, bilateral tunnel view, bilateral patellofemoral view, and lateral view each knee. FINDINGS: RIGHT KNEE: No fracture, dislocation, or suspicious bone lesion. Normal alignment. Mild medial and minimal patellofemoral compartment joint space narrowing with minimal spurring. Normal patellar alignment. No abnormal patellar tilt. No evidence of significant joint effusion. Soft tissues appear normal. LEFT KNEE: No fracture, dislocation, or suspicious bone lesion. Normal alignment. Mild medial and minimal patellofemoral compartment joint space narrowing with minimal spurring. Normal patellar alignment. No abnormal patellar tilt. No evidence of significant joint effusion. Soft tissues appear normal. XR/XR Knee Graeme 4V IMPRESSION: 1. Bilateral knees demonstrating mild medial and minimal patellofemoral compartment osteoarthrosis. No acute bony abnormalities. No evidence of joint effusion in either knee. Electronically signed by: Deion Wilson MD 03/10/2025 04:30 PM EDT Dictated By: Deion Wilson MD Signed By: <Electronically signed by Deion Wilson MD in OV> 03/10/25 1630 DD/ 1503 TD/TT: 03/10/25 1520 Melting Furnace Skimmer: Procedure Note Donotalyssainterpreter, Image - 03/10/[address] [address] XRay Report Signed Patient: Paris RajputMR#: [id number] : 1970Acct:[id number] Age/Sex: 54 / FADM Date: 03/10/25 Loc: HO.[facility] Attending Dr: Marika WATERS Ordering Physician: Marika Trujillo Date of Service: 03/10/25 Procedure(s): XR Knee Graeme 4V Accession Number(s): [id number] cc: CassandraMarika chu FINANCIAL REPORT SERVICE SALES AGENT XR KNEE GRAEME 3V HISTORY: Chronic bilateral knee pain. Suspect effusion right knee. COMPARISON: No prior. TECHNIQUE: AP view bilateral knees standing, bilateral tunnel view, bilateral patellofemoral view, and lateral view each knee. FINDINGS: RIGHT KNEE: No fracture, dislocation, or suspicious bone lesion. Normal alignment. Mild medial and minimal patellofemoral compartment joint space narrowing with minimal spurring. Normal patellar alignment. No abnormal patellar tilt. No evidence of significant joint effusion. Soft tissues appear normal. LEFT KNEE: No fracture, dislocation, or suspicious bone lesion. Normal alignment. Mild medial and minimal patellofemoral compartment joint space narrowing with minimal spurring. Normal patellar alignment. No abnormal patellar tilt. No evidence of significant joint effusion. Soft tissues appear normal. XR/XR Knee Graeme 4V IMPRESSION: 1. Bilateral knees demonstrating mild medial and minimal patellofemoral compartment osteoarthrosis. No acute bony abnormalities. No evidence of joint effusion in either knee. Electronically signed by: Deion Wilson MD 03/10/2025 04:30 PM EDT Dictated By: Deion Wilson MD Signed By: <Electronically signed by Deion Wilson MD in OV> 03/10/25 1630 DD/ 1503 TD/TT: 03/10/25 1520 Melting Furnace Skimmer: [facility] FINANCIAL REPORT SERVICE SALES AGENT IMG XR PROCEDURES Final Resul t * BI Mammogram Screening Tomosynthesis Bilateral (09/15/2024 8:45 AM EST) Anatomical Region Laterality Modality Breast Bilateral Mammography 09/15/2024 8:45 AM EST Narrative 09/23/2024 1:33 PM EST [facility] [address] [place] [address] Mammography Report Signed Patient: Paris Rajput MR#: [id number] : 1970 Acct:[id number] Age/Sex: 54 / F ADM Date: 09/15/24 Loc: HO.MAMMO Attending Dr: Marika Trujillo FINANCIAL REPORT SERVICE SALES AGENT Ordering Physician: Marika Trujillo FINANCIAL REPORT SERVICE SALES AGENT Results: 1Nega tive Date of Service: 09/15/24 Follow Up: 1 Year From Orig inal Mammogram Procedure(s): MM tomosynthesis screening BI Accession Number(s): [id number] cc: Marika Trujillo FINANCIAL REPORT SERVICE SALES AGENT EXAMINATION: MM SCREENING DIGITAL BREAST TOMOSYNTHESIS, BILATERAL CLINICAL INFORMATION: Screening. Asymptomatic. COMPARISON: Mammography: Comparison is made with available priors TECHNIQUE: Digital breast mammography with tomosynthesis is performed in both the craniocaudal and mediolateral oblique views along with computer-aided detection (CAD). FINDINGS: The breasts are heterogeneously dense, which may obscure small masses (ACR BI-RADS breast composition Category c). There are no significant masses, abnormal calcifications, or other abnormalities. MM/MM tomosynthesis screening BI IMPRESSION: No mammographic evidence of malignancy. ASSESSMENT: BI-RADS BI-RADS 1 - Negative RECOMMENDATION: Routine annual mammography screening. 1 year F/U This examination should not preclude the clinical evaluation of a suspicious palpable abnormality. This patient's information was entered into a reminder system with a target due date for their next mammogram. Electronically signed by: Marcelina Calvert DO 09/23/2024 01:30 PM [facility] Dictated By: Marcelina Calvert DO Signed By: <Electronically signed by Marcelina Calvert DO in OV> 09/23/24 1330 DD/ 0845 TD/TT: 09/15/24 0855 Melting Furnace Skimmer: Procedure Note Donotuseinterpreter, Image - 09/23/2024 [facility] [address] [place] [address] Mammography Report Signed Patient: Paris RajputMR#: [id number] : 1970Acct:[id number] Age/Sex: 54 / FADM Date: 09/15/24 Loc: HO.MAMMO Attending Dr: Marika Trujillo FINANCIAL REPORT SERVICE SALES AGENT Ordering Physician: Marika Trujillo FNPResults: 1Nega tiradha Date of Service: 09/15/24Follow Up: 1 Year From Orig ina Mammogram Procedure(s): MM tomosynthesis screening BI Accession Number(s): [id number] cc: Marika Trujillo FINANCIAL REPORT SERVICE SALES AGENT EXAMINATION: MM SCREENING DIGITAL BREAST TOMOSYNTHESIS, BILATERAL CLINICAL INFORMATION: Screening. Asymptomatic. COMPARISON: Mammography: Comparison is made with available priors TECHNIQUE: Digital breast mammography with tomosynthesis is performed in both the craniocaudal and mediolateral oblique views along with computer-aided detection (CAD). FINDINGS: The breasts are heterogeneously dense, which may obscure small masses (ACR BI-RADS breast composition Category c). There are no significant masses, abnormal calcifications, or other abnormalities. MM/MM tomosynthesis screening BI IMPRESSION: No mammographic evidence of malignancy. ASSESSMENT: BI-RADS BI-RADS 1 - Negative RECOMMENDATION: Routine annual mammography screening. 1 year F/U This examination should not preclude the clinical evaluation of a suspicious palpable abnormality. This patient's information was entered into a reminder system with a target due date for their next mammogram. Electronically signed by: Marcelina Calvert DO 09/23/2024 01:30 PM EST Dictated By: Marcelina Calvert DO Signed By: <Electronically signed by Marcelina Calvert DO in OV> 09/23/24 1330 DD/ 0845 TD/TT: 09/15/24 0855 Melting Furnace Skimmer: [facility] FINANCIAL REPORT SERVICE SALES AGENT IMG BI PROCEDURES Edited Resu lt - Final * HM PAP/HPV (12/20/2022 1:49 PM EDT) Historical Provider HEALTH MAINTENANCE Final Result from Last 3 Months or Most Recently Relevant to Health Maintenance Insurance [facility] C3 Care Teams Information Systems Security Analyst Relationship Specialty Start Date End Date Marika Trujillo FNP [address] [place] [id number] PCP - General Family Medicine 10/23/22
== END 2025-04-27 14:53 | disposition home or self-care (01) ==
LOC: HO.HOS 14:36
PROVIDERS: PCP Registered Nurse; Visit Provider Orthopaedic Surgery
DX: S83.241A Other tear of medial meniscus, current injury, right knee, initial encounter (principal)
CPT/HCPCS: 99203

== ENCOUNTER → 2025-04-27 14:35 | Outpatient (BNVA) | payer MEDICAID, SELFPAY | PROVIDERS: PCP Registered Nurse; Visit Provider Orthopaedic Surgery | DX: M25.561 Pain in right knee (principal); S83.241A Other tear of medial meniscus, current injury, right knee, initial encounter | CPT/HCPCS: 99202 ==

== ENCOUNTER → 2025-08-24 18:21 | Outpatient (BNV) | payer MEDICAID, SELFPAY | PROVIDERS: PCP Registered Nurse; Visit Provider Radiology Diagnostic Radiology | DX: S83.241A Other tear of medial meniscus, current injury, right knee, initial encounter (principal); M17.11 Unilateral primary osteoarthritis, right knee | CPT/HCPCS: 73721 ==

== ENCOUNTER 2025-08-24 18:22 | Outpatient (REF) | payer MEDICAID, SELFPAY ==
--- NOTE | ~2025-08-24 | MR_ITS ---
EXAMINATION: MR KNEE WITHOUT IV CONTRAST RIGHT HISTORY: S83.241A - Other tear of medial meniscus, current injury, right knee... COMPARISON: Correlation is made to plain films of the right knee dated 02/08/2025. TECHNIQUE: Coronal T1 and fat-suppressed proton density, sagittal proton density and fat-suppressed proton density, and axial fat suppressed T2 weighted MR images of the right knee were obtained. FINDINGS: Articular cartilage: There is moderate osteoarthritis of the medial compartment with cartilage loss, osteophyte formation, and subchondral marrow changes. There is mild thinning of the patellar cartilage. Bone marrow: Bone marrow signal intensity is otherwise normal. Joint effusion: There is a small joint effusion. Andrade's cyst: There is no Andrade's cyst. Muscles/soft tissues: The visualized muscles demonstrate normal signal intensity. Anterior cruciate ligament: Intact Posterior cruciate ligament: Intact Medial collateral ligament: Intact Lateral collateral ligament: Intact Medial meniscus: There is partial extrusion of the body of the medial meniscus. There is blunting of the free edge of the posterior horn of the medial meniscus, consistent with a tear. This may be degenerative in nature. The anterior horn is intact. Lateral meniscus: Intact Flexor mechanism: The popliteus, gastrocnemius, and hamstring tendons are intact. There is a 6 x 9 mm multiseptated cyst adjacent to the distal hamstring tendon which may represent a ganglion cyst. Quadriceps tendon: Intact Patellar tendon: Intact Patellar retinacula: Intact MR/MR knee RT wo con IMPRESSION: 1. Moderate osteoarthritis of the medial compartment. Mild thinning of the patellar cartilage. 2. Blunting of the free edge of the posterior horn of the medial meniscus consistent with a tear, which may be degenerative in nature. 3. Possible 6 x 9 mm ganglion cyst associated with the distal hamstring tendon. Electronically signed by: Wyatt Barlow MD 08/25/2025 07:40 AM EST
--- OUTSIDE RECORDS SUMMARY | 2025-08-24 19:18 | XMS_ITS | Encounter Summary ---
Author Organization [employer] Address [address] [address] Care Team Providers Care Records And Tape Recordings Engineer Name Role Phone Rangel Rodriguez Primary Care Provider Tayler diana [place] JT Primary Care Provider [phone] Encounter Details Date Type Department Care Team (Late st Contact Info) Description 08/15/2022 Abstract [facility] [address] [place] [address] Rangel Rodriguez FNP Social History Tobacco Use [...] on filedocumented in this encounter Care Teams Records And Tape Recordings Engineer Relationship Specialty Start Date End Date Rangel Rodriguez FNP PCP - General 07/16/22 10/22/22 OsageMarika FNP [address] [place] [address] PCP - General Family Medicine 10/23/22 documented as of this encounter
--- OUTSIDE RECORDS SUMMARY | 2025-08-24 19:18 | XMS_ITS | Clinical Summary ---
Author Organization [employer] Address [address] [facility] 7[address] [place] [address] Care Team Providers Care Field Service Manager Name Role Phone Marika Trujillo [facility] Primary Care Provider [phone] Allergies No known active allergies Medications * [...] EVERY DAY 32 mL 1 4 Active mirtazapine (Remeron) 7.5 MG tabletIndications: Anxiety Take 1 tablet (7.5 mg) by mouth at bedtime. 30 tablet 1 5 Active ibuprofen 600 MG tabletIndications: Chronic pain of both knees Take 1 tablet (600 mg) by mouth every 6 (six) hours if needed for mild pain. 30 tablet 1 5 Active triamcinolone (Kenalog) 0.1 % creamIndications:O ther eczema APPLY TOPICALLY IN THE MORNING AND AT BEDTIME NEEDED FOR PAIN AND SWELLING 30 g 2 5 Active Active Problems Problem Noted Date [...] of water, especially in the bedroom. Encounters Date Type Department Care Team Description 07/20/2025 Refill [facility] [address] [place] [address] BrightonMarika FNP Other eczema from Last 3 Months Immunizations Immunization Administration [...] is your housing situation today? I have master joyner 07/15/[address] you [...] of 2) 2020 COVID-19 Vaccine (1 - season) 2025 Influenza Vaccine (#1) 2025 Depression Monitoring 09/12/2025 03/12/2025, 025 Mammogram 09/15/2025 09/15/2024, 09/27, 10/17/2021, Additional history exists Alcohol/Substance Use Screening 03/10/2026 03/10/2025 Disability Screening 03/10/2026 03/10/2025 SDOH Screening 03/10/2026 03/10/2025 Tobacco Screening 03/11/2026 03/11/2025 Cervical Cancer Screening 12/21/2027 HPV/Cotest 12/21/2027 Pap Smear 12/21/2027 12/20/2022 DTaP/Tdap/Td Vaccines (2 - Td or Tdap) 11/29/2031 11/28/2021 RSV Patients and [...] Procedure Name Priority Date/Time Associated Diagnosis Comments BI MAMMOGRAM SCREENING TOMOSYNTHESIS BILATERAL Routine 09/15/2024 8:45 AM EST Encounter for screening mammogram for breast cancer HM PAP/HPV Routine 12/20/2022 1:49 PM EDT from Last 3 Months or Most Recently Relevant to Health Maintenance Results * BI Mammogram Screening Tomosynthesis Bilateral (09/15/2024 8:45 AM EST) Anatomical Region Laterality Modality Breast Bilateral Mammography 09/15/2024 8:45 AM EST Narrative 09/23/2024 1:33 PM EST [facility] [address] [place] [address] Mammography Report Signed Patient: Paris Rajput MR#: [id number] : 1970 Acct:[id number] Age/Sex: 54 / F ADM Date: 09/15/24 Loc: HO.MAMMO Attending Dr: Marika Trujillo STORE PROTECTION SPECIALIST Ordering Physician: Marika Trujillo Results: 1Nega tive Date of Service: 09/15/24 Follow Up: 1 Year From Orig inal Mammogram Procedure(s): MM tomosynthesis screening BI Accession Number(s): [id number] cc: Marika Trujillo STORE PROTECTION SPECIALIST EXAMINATION: MM SCREENING DIGITAL BREAST TOMOSYNTHESIS, BILATERAL [...] by: Marcelina Calvert DO 09/23/2024 01:30 PM [facility] Dictated By: Marcelina Calvert DO Signed By: <Electronically signed by Marcelina Calvert DO in OV> 09/23/24 1330 DD/ 0845 TD/TT: 09/15/24 0855 Kiln Cleaner: Procedure Note Donotuseinterpreter, Image - 09/23/2024 [facility] [address] [place] [address] Mammography Report Signed Patient: Paris RajputMR#: [id number] : 1970Acct:[id number] Age/Sex: 54 / FADM Date: 09/15/24 Loc: HO.MAMMO Attending Dr: Marika Trujillo STORE PROTECTION SPECIALIST Ordering Physician: Marika Trujillo FNPResults: 1Nega tive Date of Service: 09/15/24Follow Up: 1 Year From Orig inal Mammogram Procedure(s): MM tomosynthesis screening BI Accession Number(s): [id number] cc: Marika Trujillo STORE PROTECTION SPECIALIST EXAMINATION: MM SCREENING DIGITAL BREAST TOMOSYNTHESIS, BILATERAL [...] Marcelina Calvert DO 09/23/2024 01:30 PM EST RP Dictated By: Marcelina Calvert DO Signed By: <Electronically signed by Marcelina Calvert DO in OV> 09/23/24 1330 DD/ 0845 TD/TT: 09/15/24 0855 Kiln Cleaner: [facility] STORE PROTECTION SPECIALIST IMG BI PROCEDURES Edited Resu lt - Final * HM PAP/HPV (12/20/2022 1:49 PM EDT) Historical Provider HEALTH MAINTENANCE Final Result from Last 3 Months or Most Recently Relevant to Health Maintenance [facility] Care Teams Field Service Manager Relationship Specialty Start Date End Date BrightonMariak, STORE PROTECTION SPECIALIST [address] [place] [id number] PCP - General Family Medicine 10/23/22
--- OUTSIDE RECORDS SUMMARY | 2025-08-24 19:18 | XMS_ITS | Data Portability ---
Author Organization [facility] [address] [place] [address] Care Team Providers Care Collection Systems Worker Name Role Phone Unavailable Primary Care Provider Assessment No assessment recorded. [...] height Body mass index (BMI) Body weight Pain severity - 0-10 verbal numeric rating [Score] - Reported Oxygen saturation Heart rate Respiratory rate Body temperature Systolic And Diastolic Provider Name and Address Organization Details Last Updated DateTime 3 149.86 cm 27.3 kg/m2 74858.9 7 g 8 96 % 65 /min 16 /min 97.8 [degF] 125/79 mm[Hg] KYE Russo [employer] 11:52:33 Social History Question Answer Notes LastModified by [facility] Details LastModified Time Tobacco Smoking Status Never Smoker [facility] 02/27/2023 11:50:37 Have You Recently Traveled Abroad? No Information not available 02/27/2023 Sex: Unknown Functional Status Question Answer Note LastModified by [facility] Details LastModified Time Do you use any [...] Diagnosis SNOMED-CT Code Diagnosis ICD10 Code Diagnosis IMO Codes Diagnosis Note [id number] [facility] [address] [place] [address] 08/31/2020 10:57:07 08/31/2020 12:33:43 [id number] Kiya Braun MD [facility] [address] [place] [address] 02/27/2023 11:22:53 02/27/2023 13:29:46 Left without being seen [id number] 9102 Z53.21 Health Concerns Section Related Observation LastModified by Organization Detai ls LastModified Time None Recorded Concern Status LastModified by Organization Details LastModified Time None Recorded Advance Directives Directive None Recorded Payers Insurance Date Sequence Insurance Name Policy Number Policy Hoang Covered Member ID Hoang Member ID Guarantor Name 02/27/2023 1 [place] [id number] Parisshakeel Rajput Notes Date Note Type Note Provider Name and Address Organization Details Recorded Time 02/27/2023 text/html Skin Redness UCReported by Patient Kiya Braun MD [address] [place], [address], [place] [facility] 02/27/2023 13:49:14 OBGyn Episode No OBEpisode recorded.
--- OUTSIDE RECORDS SUMMARY | 2025-08-24 19:18 | XMS_ITS | Encounter Summary ---
Author Organization [employer] Address [address] [place] [address] Care Team Providers Care Palliative Care Physician Name Role Phone Marika Trujillo MENTAL HEALTH AIDE Primary Care Provider [phone] Encounter Details Date Type Department Care Team (Late st Contact Info) Description 03/25/2025 Orders Only [facility] [address] [place], [place] [id number] Provider, MD Priya Social History Tobacco Use [...] documented as of this encounter Care Teams Palliative Care Physician Relationship Specialty Start Date End Date Marika Trujillo FNP [address] [place] [id number] PCP - General Family Medicine 10/23/22 documented as of this encounter
== END 2025-08-24 18:23 | disposition home or self-care (01) ==
LOC: HO.MRI 18:22
PROVIDERS: PCP Registered Nurse; Visit Provider Orthopaedic Surgery
DX: S83.241A Other tear of medial meniscus, current injury, right knee, initial encounter (principal)
CPT/HCPCS: 73721